=== PATIENT | female | born 1940 | race Caucasian/White ===

== ENCOUNTER → 2017-07-27 | Outpatient (CLI) | payer MEDICARE ==
[~2017-07-27] MED LIST: ALEN70TA47 PO; ASPI-1012 PO; ATOR40TA69 PO; BUME1TAB12 PO; CHOL200012 PO; CLOP100P MC; COLE1TAB2 PO; DICY20TA11 PO; DULA0.75 SQ; EZET10 PO; GABEPENTIN PO; LISI10TA7 PO; MAGN400C PO; OMEP40CA37 PO; SERT25TA5 PO; SITA100T12 PO
== END | disposition home or self-care (01) ==
LOC: RAH 09:25
PROVIDERS: ATTEND Internal Medicine
DX: M16.0 Bilateral primary osteoarthritis of hip (principal); Z98.890 Other specified postprocedural states
CPT/HCPCS: 73522

== ENCOUNTER → 2017-08-31 | Outpatient (CLI) | payer MEDICARE | LOC: OIH 07:48 | PROVIDERS: ATTEND Internal Medicine | DX: I70.0 Atherosclerosis of aorta (principal); L92.8 Other granulomatous disorders of the skin and subcutaneous tissue | CPT/HCPCS: 71250; 74176 ==

== ENCOUNTER → 2018-03-16 | Outpatient (CLI) | payer MEDICARE | END | disposition home or self-care (01) | LOC: SLP 19:37 | PROVIDERS: ATTEND Internal Medicine Cardiovascular Disease | DX: G47.10 Hypersomnia, unspecified (principal); M16.0 Bilateral primary osteoarthritis of hip; E11.9 Type 2 diabetes mellitus without complications; I25.10 Atherosclerotic heart disease of native coronary artery without angina pectoris; I10 Essential (primary) hypertension; E78.5 Hyperlipidemia, unspecified; I48.91 Unspecified atrial fibrillation | CPT/HCPCS: 95811 ==

== ENCOUNTER → 2018-04-19 | Outpatient (CLI) | payer MEDICARE ==
[~2018-04-19] MED LIST changes: +REGADENOSON 0.4 MG/5 ML PF SYG IVP SCH
== END | disposition home or self-care (01) ==
LOC: SHCH 07:44
PROVIDERS: ATTEND Internal Medicine Cardiovascular Disease
DX: I20.9 Angina pectoris, unspecified (principal); I10 Essential (primary) hypertension
CPT/HCPCS: 78452; 93017; 96374; A9500 ×2; J2785

== ENCOUNTER 2019-06-22 11:39 | Day surgery (SDC) | payer MEDICARE ==
[2019-06-21 13:23] VITALS: BP 142/69
[2019-06-21 13:36] LABS: BASOPHILS % (AUTO) 0.6 % (0.0-5.0); HEMATOCRIT 38.2 % (36-48); LYMPHOCYTES % (AUTO) 24.1 % (21.0-51.0); MEAN CORPUSCULAR HEMOGLOBIN 29.1 pg (27.0-33.0); MEAN CORPUSCULAR HGB CONC 32.2 g/dL (32.0-36.0); MEAN CORPUSCULAR VOLUME 90.3 fL (79-99); MONOCYTES % (AUTO) 7.7 % (3.0-13.0); NEUTROPHILS % (AUTO) 64.4 % (40.0-77.0); PLATELET COUNT (AUTO) 219 K/uL (130-400); RED BLOOD CELL COUNT(AUTO) 4.23 MIL/uL (4.00-5.50); RED CELL DISTRIBUTION WIDTH 13.1 % (11.0-15.5); WHITE BLOOD COUNT (AUTO) 6.3 K/uL (4.8-10.8)
[2019-06-21 13:40] LABS: APPEARANCE,URINE Clear (CLEAR); BILIRUBIN,URINE Negative (NEGATIVE); COLOR,URINE Yellow (YELLOW); GLUCOSE, URINE (UA) Negative (NEGATIVE); KETONES,URINE Negative (NEGATIVE); LEUKOCYTE ESTERASE ,URINE Trace (NEGATIVE); NITRATE,URINE Negative (NEGATIVE); OCCULT BLOOD,URINE Negative (NEGATIVE); PROTEIN,URINE Negative (NEGATIVE)
[2019-06-21 13:51] LABS: POTASSIUM 4.9 mmol/L (3.5-5.1)
[2019-06-21 13:53] LABS: BACTERIA,URINE Rare /HPF (None Seen); RBC,URINE 0-1 /HPF (0-1); SQUAMOUS EPITHELIAL CELL,UR Rare /HPF (0-2)
[2019-06-21 13:54] LABS: INR 0.99 (0.85-1.15); PARTIAL THROMBOPLASTIN TIME 25.6 SEC (26.3-35.5); PROTHROMBIN TIME 10.4 SEC (9.6-11.6)
--- NOTE | 2019-06-21 15:20 | NUR ---
ABNORMAL LABS ABNORMAL UA REPORTED TO SERGEI BROWNING; UA LEUKEST TRACE. NO FURTHER ORDERS GIVEN. MAY PROCEED WITH PLANNED PROCEDURE.
--- NOTE | 2019-06-21 16:40 | NUR ---
CXR CHEST X RAY RESULT REPORTED TO SERGEI BROWNING. NO FURTHER ORDERS GIVEN, MAY PROCEED.
[~2019-06-22] VITALS: Ht 149.9 cm; Wt 57.2 kg
[2019-06-22] VITALS (8 sets, daily range): BP systolic 107–156; BP diastolic 48–72
[~2019-06-22 11:39] MED LIST changes: -ALEN70TA47 PO; +AMLO5TAB9 PO; -ASPI-1012 PO; +ASPI-1197 PO; -BUME1TAB12 PO; +CALCIUM CITRATE PO; -CHOL200012 PO; +CHOL400T14 PO; -CLOP100P MC; -COLE1TAB2 PO; -DICY20TA11 PO; -DULA0.75 SQ; +DULA1.5P SQ; -EZET10 PO; +EZET10TA13 PO; -LISI10TA7 PO; -MAGN400C PO; +OMEP40CA13 PO; -OMEP40CA37 PO; -REGADENOSON 0.4 MG/5 ML PF SYG IVP SCH; -SITA100T12 PO; +SODIUM CHLORIDE 0.9% 500ML 500 ML IV SCH
[2019-06-22] MEDS ORDERED: HEPARIN SODIUM 1000UNIT/ML 10ML VIAL ONE (15:24)
[2019-06-22] MEDS ORDERED: BIVALIRUDIN 250 MG/VIAL IV ONE (15:24)
[2019-06-22] MEDS ORDERED: NITROGLYCERIN 5 MG/ML 10 ML VIAL IV ONE (15:24)
[2019-06-22] MEDS ORDERED: SODIUM BICARB 50MEQ 50ML VIAL ONE (15:24)
[2019-06-22] MEDS ORDERED: LIDOCAINE HCL 2% 20ML ONE (15:24)
[2019-06-22] MEDS ORDERED: IOHEXOL 350 MG/ML 100ML INFUS..BTL IV ONE (15:26)
[2019-06-22] MEDS ORDERED: IOHEXOL-350 50ML VIAL IV ONE (15:26)
[2019-06-22] MEDS ORDERED: MIDAZOLAM HCL 1 MG/ML 2ML VIAL ONE (15:57)
[2019-06-22] MEDS ORDERED: FENTANYL CITRATE PF 50 MCG/1 ML 2ML VIAL ONE (15:57)
[2019-06-22] MEDS ORDERED: LABETALOL HCL 5 MG/ML 20ML VIAL IV ONE (16:25)
[2019-06-22] MEDS ORDERED: ADENOSINE 90MG/30ML VIAL IV ONE (16:40)
--- NOTE | 2019-06-22 21:03 | NUR ---
PT LEFT VIA WHEELCHAIR IN PVT CAR, D/C INSTRUCTIONS GIVEN TO GRANDDAUGHTER NO COMPLICATIONS PT STABLE, NO HEMATOMA NO, BLEEDING, NO PAIN, DRESSING DRY AND INTACT, DP BILATERAL PRESENT
== END 2019-06-22 21:05 | disposition home or self-care (01) ==
LOC: DAH 11:39
PROVIDERS: ATTEND Internal Medicine Cardiovascular Disease
DX: I25.10 Atherosclerotic heart disease of native coronary artery without angina pectoris (principal); R94.39 Abnormal result of other cardiovascular function study; I10 Essential (primary) hypertension; I25.2 Old myocardial infarction; I48.91 Unspecified atrial fibrillation; Z95.1 Presence of aortocoronary bypass graft; E78.5 Hyperlipidemia, unspecified; E11.9 Type 2 diabetes mellitus without complications; K21.9 Gastro-esophageal reflux disease without esophagitis; G47.33 Obstructive sleep apnea (adult) (pediatric); Z88.8 Allergy status to other drugs, medicaments and biological substances; Z88.1 Allergy status to other antibiotic agents; Z95.818 Presence of other cardiac implants and grafts; Z79.82 Long term (current) use of aspirin; Z79.899 Other long term (current) drug therapy; Z90.49 Acquired absence of other specified parts of digestive tract; Z90.710 Acquired absence of both cervix and uterus; Z98.890 Other specified postprocedural states; Z82.49 Family history of ischemic heart disease and other diseases of the circulatory system
CPT/HCPCS: 36415; 71045; 80048; 81001; 82948 ×2; 85025; 85610; 85730; 93005; 93459; 93571; A4215; A4216; A4221; A4222; A4223 ×3; A4606; A4663; C1760; C1769; C1887; C1894 ×2; J0153; J0583; J1644; J2250; J3010; J3490 ×4; Q9965 ×2; Q9967 ×2; 99156; 99157

== ENCOUNTER → 2019-08-24 | Outpatient (CLI) | payer MEDICARE ==
[~2019-08-24] MED LIST changes: -SODIUM CHLORIDE 0.9% 500ML 500 ML IV SCH
== END | disposition home or self-care (01) ==
LOC: LAB 11:57
PROVIDERS: ATTEND Internal Medicine Gastroenterology
DX: R19.7 Diarrhea, unspecified (principal); R10.11 Right upper quadrant pain; R93.3 Abnormal findings on diagnostic imaging of other parts of digestive tract
CPT/HCPCS: 36415; 82565; 84520

== ENCOUNTER → 2019-08-28 | Outpatient (CLI) | payer MEDICARE ==
[~2019-08-28] MED LIST changes: +IOHEXOL 350 MG/ML 100ML INFUS..BTL IV ONE
== END | disposition home or self-care (01) ==
LOC: OIH 07:54
PROVIDERS: ATTEND Internal Medicine Gastroenterology
DX: N28.1 Cyst of kidney, acquired (principal); K57.30 Diverticulosis of large intestine without perforation or abscess without bleeding; M47.816 Spondylosis without myelopathy or radiculopathy, lumbar region; Z90.49 Acquired absence of other specified parts of digestive tract; Z90.710 Acquired absence of both cervix and uterus; R19.7 Diarrhea, unspecified
CPT/HCPCS: 74178; Q9967